=== PATIENT | female | born 1945 ===

== ENCOUNTER 2018-06-08 07:36 | Day surgery (SDC) | payer OTHER ==
[~2018-06-08 07:36] MED LIST: CLONAZEPAM1 M1 PO; GABAPENTIN300 MG PO; KEPPRA1000 MG PO; LIPITOR40 MG PO; PAXIL20 MG PO; [UNRECOGNIZED DRUG - OTHER] PO
== END 2018-06-08 11:30 | disposition home or self-care (01) ==
LOC: CIR.AMB 07:36
DX: M47.27 Other spondylosis with radiculopathy, lumbosacral region (principal); M47.817 Spondylosis without myelopathy or radiculopathy, lumbosacral region

== ENCOUNTER 2018-08-13 11:25 | Outpatient (CLI) | payer OTHER ==
[2018-08-15] MEDS ORDERED: ZANTAC 7575 MG PO (07:02)
== END 2018-08-13 11:29 | disposition home or self-care (01) ==
LOC: LAB 11:25 → RAD 11:25 → LAB 11:29
DX: R07.89 Other chest pain (principal); D68.8 Other specified coagulation defects; E78.2 Mixed hyperlipidemia; N39.0 Urinary tract infection, site not specified; I10 Essential (primary) hypertension; R82.79 Other abnormal findings on microbiological examination of urine

== ENCOUNTER 2018-08-17 06:50 | Day surgery (SDC) | payer OTHER ==
[~2018-08-17 06:50] MED LIST changes: +ZANTAC 7575 MG PO
== END 2018-08-17 14:30 | disposition home or self-care (01) ==
LOC: CIR.AMB 06:50
DX: M47.27 Other spondylosis with radiculopathy, lumbosacral region (principal)